=== PATIENT | male | born 1940 | race Caucasian/White ===

== ENCOUNTER → 2016-06-07 | Outpatient (CLI) | payer OTHER ==
--- NOTE | 2016-06-07 10:38 | DX ---
Lumbar Spine, AP and Lateral Upright Views 9:10 a.m. Clinical History: 75-year-old male for follow up after lumbar fusion. ICD-10 Diagnostic Code: M51.36. Comparison Study: Lumbar spine, dated April 22, 2016. Findings: There are five non-ribbearing lumbar-type vertebral bodies. There is an old severe L1 compr ession fracture with more pronounced inferior cortical endplate subchondral sclerosis. There are spin al fusion rods which extend from the L1-L3 levels secured by transpedicular screws at the L1 level an d then "piggybacking" off of additional longitudinally-oriented fusion rods which extend from L2 to S 1, also secured by bilateral transpedicular screws. A transversely-situated fusion bar is seen at the L5 level. There is no periprosthetic lucency. The screws at the L2 level terminate along the superio r cortical endplate and the more caudal of the screws at S1 slightly traverses the ventral cortical s urface, however these are stable in position. There are radiopaque markers along the interbody levels of L1-L2, L2-L3, L3-L4, L4-L5, and L5-S1. The patient has had laminectomies at the L2, L3, L4, and L 5 levels. There is mild L3-L4 anterolisthesis, which is stable. 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 The bones are demine ralized with the exception of facet osteosclerosis throughout the [id number] lumbar spine. There is mural calcification of the abdominal aorta. There is a mild thoracolumbar junction dextroscoliosis. Impression: Radiographically stable positioning following an extensive arthrodesis from L1 to S1.
== END ==
LOC: FIMAGING 09:09
PROVIDERS: ATTEND Physician Assistant Surgical
DX: Z09 Encounter for follow-up examination after completed treatment for conditions other than malignant neoplasm (principal); Z98.1 Arthrodesis status

== ENCOUNTER → 2016-08-06 | Outpatient (CLI) | payer OTHER | LOC: FIMAGING 09:06 | PROVIDERS: ATTEND Physician Assistant | DX: Z09 Encounter for follow-up examination after completed treatment for conditions other than malignant neoplasm (principal); Z98.1 Arthrodesis status; S32.010D Wedge compression fracture of first lumbar vertebra, subsequent encounter for fracture with routine healing ==

== ENCOUNTER → 2016-09-23 | Outpatient (CLI) | payer OTHER | PROVIDERS: ATTEND Family Medicine | DX: R13.10 Dysphagia, unspecified (principal); K22.5 Diverticulum of esophagus, acquired; R63.3 Feeding difficulties | CPT/HCPCS: 74230; 92611; G8996; G8997; G8998 ==

== ENCOUNTER → 2017-10-12 | Outpatient (CLI) | payer OTHER | LOC: CIMAGING 19:02 | PROVIDERS: ATTEND Family Medicine | DX: S62.663A Nondisplaced fracture of distal phalanx of left middle finger, initial encounter for closed fracture (principal); S62.645A Nondisplaced fracture of proximal phalanx of left ring finger, initial encounter for closed fracture; M18.12 Unilateral primary osteoarthritis of first carpometacarpal joint, left hand | CPT/HCPCS: 73130-PO; 73140-PO ==